=== PATIENT | male | born 1975 | race Caucasian/White ===

== ENCOUNTER 2017-05-12 15:47 | Emergency (ER) | payer SELFPAY ==
[2017-05-12 15:57] VITALS: BMI 25.0
--- NOTE | 2017-05-12 16:14 | DR.GENAD ---
HPI - PCP Primary Care Physician: JOHN - Complaint/Symptoms Chief Complaint Doctors Comments: Patient admits to left lower extremity erythema for three weeks. The erthema is not getting worse he is concerned that it has been there for this duration. He denies trauma. Chief Complaint:: PT C/O SWELLIN, PAIN AND REDNESS TO LT LOWER EXT. PT STATES THIS HAS BEEN THERE FOR 2 WEEKS IT IS NOT GETTING BETTER. PT STATES HE THOUGHT AT FIRST HE HIT IT ON SOMETHING, BUT OVER THE COURSE OF TIME THE SWELLING AND REDNESS IS GETTING WORSE AND HE IS HAVING TROUBLE WALKING - Source History Provided: Patient - Mode of Arrival Mode of Arrival: Ambulatory - Timing Onset of Chief Complaint: 05/11/17 PMH - PMH Past Medical History: Yes Past Medical History: Hypertension Past Surgical History: No - Family History History of Family Medical Conditions: No - Social History Does any household member use tobacco: No Alcohol Use: Heavy, DAILY Do you use any recreational Drugs:: No Lives With: Family Lives Where: Home - infectious screening In the last 2 months have you had wt loss of >10#?: NO Have you had fever, night sweats or hemotysis?: No Have you traveled outside the country in the last 6 months?: No Isolation: Standard ROS - Review of Systems Eyes: No Symptoms Reported ENTM: No Symptoms Reported Respiratoy: No Symptoms Reported Cardiovascular: No Symptoms Reported Gastrointestinal/Abdominal: No Symptoms Reported Genitourinary: No Symptoms Reported Neurological: No Symptoms Reported Musculoskeletal: No Symptoms Reported Integumentary: No Symptoms Reported Hematologic/Lymphatic: No Symptoms Reported Endocrine: No Symptoms Reported Psychiatric: No Symptoms Reported All Other Systems: Reviewed and Negative PE - Vital Signs Vitals: Temperature 98.5 F Pulse Rate [Right] 77 Pulse Rate 74 Respiratory Rate 16 Blood Pressure [Left Arm] 158/89 Blood Pressure 193/123 O2 Sat by Pulse Oximetry 99 - General Limitations: No Limitations General Appearance: Alert, In No Apparent Distress - Head Head Exam: Normal Inspection, Atraumatic - Eyes Eye exam: Normal Appearance, PERRL, EOMI - ENT ENT Exam: Normal Exam External Ear Exam: Normal External Inspection TM/Canal Exam: Bilateral Normal Nose Exam: Normal Nose Exam Mouth Exam: Normal Inspection Throat Exam: Normal Inspection - Neck Neck Exam: Normal Inspection - Chest Chest Inspection: Normal Inspection, Symmetric Chest Wall Rise, Tenderness - Respiratory Respiratory Exam: Normal Lung Sounds Bilat. negative: Accessory Muscle Use Respiratory Exam: Bilateral Clear to Auscultation - Cardiovascular Cardiovascular Exam: Regular Rate, Normal Rhythm - Abdominal Exam Abdominal Exam: Normal Inspection, Normal Bowel Sounds, Soft Abdominal Tenderness: negative: RUQ, RLQ, LUQ, LLQ, Epigastrium, Suprapubic, Diffuse, Mild, Moderate, Severe, Other - Extremities Extremities Exam: Other (left lower extremity with a slight erythematous guille above the ankle). negative: Tenderness, Edema, Joint Swelling - Back Back Exam: Normal Inspection, Full ROM - Neurologic Neurological Exam: Alert, Oriented X3, CN II-XII Intact - Psychiatric Psychiatric Exam: Normal Affect - Skin Skin Exam: Warm, Dry, Intact Course - Reevaluation 1st: Unchanged ROR - Labs Reviewed Laboratory Results Reviewed?: Yes (D Dimer 442) Result Diagrams: 05/12/17 16:25 05/12/17 16:25 Laboratory: WBC 12.5 X10^3/uL (3.6-10.0) H 05/12/17 16:25 RBC 4.88 X10^6/uL (4.7-6.0) 05/12/17 16:25 Hgb 16.2 g/dL (13.5-18.0) 05/12/17 16:25 Hct 46.1 % (42.0-54.0) 05/12/17 16:25 MCV 94.5 fL (80.0-100.0) 05/12/17 16:25 MCH 33.2 pg (27.0-34.0) 05/12/17 16:25 MCHC 35.1 g/dL (33.0-35.0) H 05/12/17 16:25 RDW 16.5 % (11.6-16.5) 05/12/17 16:25 Plt Count 261 X10^3/uL (150.0-450.0) 05/12/17 16:25 MPV 7.1 fL (7.4-11.0) L 05/12/17 16:25 Neut % 72.2 % (42.0-75.0) 05/12/17 16:25 Lymph % 19.2 % (21.0-51.0) L 05/12/17 16:25 [place] % 7.7 % (0.0-13.0) 05/12/17 16:25 Eos % 0.2 % (0.9-2.9) L 05/12/17 16:25 Baso % 0.7 % (0.2-1.0) 05/12/17 16:25 Neut # 9.0 x10^3/uL (2.2-4.8) H 05/12/17 16:25 Lymph # 2.4 X10^3/uL (1.3-2.9) 05/12/17 16:25 [place] # 1.0 x10^3/uL (0.3-0.8) H 05/12/17 16:25 Eos # 0.0 x10^3/uL (0.0-0.2) 05/12/17 16:25 Baso # 0.1 X10^3/uL (0.0-0.1) 05/12/17 16:25 Absolute Nucleated RBC 0.0 /100WBC 05/12/17 16:25 D-Dimer 442 ng/mL (0-400) H* 05/12/17 16:25 Sodium 138 mmol/L (136-145) 05/12/17 16:25 Corrected Sodium 138 mmol/L (136-145) 05/12/17 16:25 Potassium 3.7 mmol/L (3.5-5.1) 05/12/17 16:25 Chloride 99 mmol/L (98-107) 05/12/17 16:25 Carbon Dioxide 31.5 mmol/L (21-32) 05/12/17 16:25 BUN 5 mg/dL (7-18) L 05/12/17 16:25 Creatinine 0.93 mg/dL (0.70-1.30) 05/12/17 16:25 Est GFR (MDRD) Af Amer > 60 (>60) 05/12/17 16:25 Est GFR (MDRD) Non-Af > 60 (>60) 05/12/17 16:25 Glucose 114 mg/dL (65-99) H 05/12/17 16:25 Calcium 9.5 mg/dL (8.5-10.1) 05/12/17 16:25 C-Reactive Protein 3.70 mg/L (0-3.0) H 05/12/17 16:25 - XRAY XRAY Interpreted by: Radiologist (Venous US: negative for DVT) - Diagnosis Discharge Problem: Hypertension Qualifiers: Hypertension type: unspecified secondary hypertension Qualified Code(s): I15.9 - Secondary hypertension, unspecified Cellulitis Qualifiers: Site of cellulitis: extremity Site of cellulitis of extremity: lower extremity Laterality: left Qualified Code(s): L03.116 - Cellulitis of left lower limb - Discharge Plan Disposition: HOME, SELF-CARE Condition: Stable Prescriptions: Sulfamethoxazole-Trimethoprim [BACTRIM DS TAB 800/160 MG *] 1 tab PO BID #20 tab - Follow ups/Referrals Follow ups/Referrals: NFD,None [Primary Care Provider] - 3 days - Instructions Instructions: Cellulitis, Adult, [id number]
[2017-05-12 16:36] LABS: BASOPHILS # (AUTO) 0.1 X10^3/uL (0.0-0.1); BASOPHILS % (AUTO) 0.7 % (0.2-1.0); EOSINOPHILS % (AUTO) 0.2 % (0.9-2.9); HEMATOCRIT 46.1 % (42.0-54.0); HEMOGLOBIN 16.2 g/dL (13.5-18.0); LYMPHOCYTES # (AUTO) 2.4 X10^3/uL (1.3-2.9); LYMPHOCYTES % (AUTO) 19.2 % (21.0-51.0); MEAN CORPUSCULAR HEMOGLOBIN 33.2 pg (27.0-34.0); MEAN CORPUSCULAR HGB CONC 35.1 g/dL (33.0-35.0); MEAN CORPUSCULAR VOLUME 94.5 fL (80.0-100.0); MEAN PLATELET VOLUME 7.1 fL (7.4-11.0); MONOCYTES % (AUTO) 7.7 % (0.0-13.0); NEUTROPHILS % (AUTO) 72.2 % (42.0-75.0); PLATELET COUNT 261 X10^3/uL (150.0-450.0); RED BLOOD COUNT 4.88 X10^6/uL (4.7-6.0); RED CELL DISTRIBUTION WIDTH 16.5 % (11.6-16.5); WHITE BLOOD COUNT 12.5 X10^3/uL (3.6-10.0)
[2017-05-12 16:44] LABS: BLOOD UREA NITROGEN 5 mg/dL (7-18); CALCIUM 9.5 mg/dL (8.5-10.1); CARBON DIOXIDE 31.5 mmol/L (21-32); CHLORIDE 99 mmol/L (98-107); COR NA(FOR HYPERGLY) 138 mmol/L (136-145); CREATININE 0.93 mg/dL (0.70-1.30); SODIUM 138 mmol/L (136-145); eGFR BLACK RACES > 60 (>60); eGFR NON BLACK RACES > 60 (>60)
[2017-05-12] MEDS ORDERED: CATAPRES TAB 0.1 MG PO ONE ×2 (17:25→18:19)
[2017-05-12] MEDS ORDERED: CATAPRES TAB 0.1 MG ONE ×2 (17:32→18:19)
--- NOTE | 2017-05-12 18:18 | VAS ---
HISTORY: Left lower extremity pain Study: Venous Doppler ultrasound left lower extremity Comparison: None Technique: Multiple sonographic images of the deep venous system of the left lower extremity were obt ained. Findings: He visualized portions of the left common femoral, superficial femoral, and popliteal vein demonstrat e proper flow, compression, and augmentation without evidence for deep venous thrombosis. IMPRESSION: Negative for DVT. Reported By:
[2017-05-12] MEDS ORDERED: ROCEPHIN VIAL 500 MG IM ONE (18:34)
[2017-05-12] MEDS ORDERED: ROCEPHIN VIAL 500 MG ONE (18:49)
[2017-05-12] MEDS ORDERED: CATAPRES TAB 0.2 MG ONE (19:04)
[2017-05-12] MEDS ORDERED: CATAPRES TAB 0.2 MG PO ONE (19:04)
[2017-05-12 19:35] VITALS: BP 158/89
== END 2017-05-12 19:30 | disposition home or self-care (01) ==
LOC: ER 16:01
DX: L03.116 Cellulitis of left lower limb (principal); I15.9 Secondary hypertension, unspecified
CPT/HCPCS: 36415; 80048; 85025; 85378; 86140; 93971; 96372; 99282; 99283; J0696

== ENCOUNTER 2019-09-15 09:01 | Inpatient (IN) ==
[2019-09-15 09:07] VITALS: BMI 22.6
[2019-09-15] MEDS ORDERED: NS 1000 ML 1,000 ML IV ONE ×2 (09:13→10:35)
[2019-09-15] MEDS ORDERED: NS 1000 ML 1,000 ML ONE ×2 (09:15→10:21)
[2019-09-15 09:30] LABS: BASOPHILS # (AUTO) 0.1 X10^3/uL (0.0-0.1); BASOPHILS % (AUTO) 0.6 % (0.2-1.0); EOSINOPHILS % (AUTO) 0.2 % (0.9-2.9); HEMATOCRIT 46.8 % (42.0-54.0); HEMOGLOBIN 16.2 g/dL (13.5-18.0); LYMPHOCYTES # (AUTO) 3.3 X10^3/uL (1.3-2.9); LYMPHOCYTES % (AUTO) 19.6 % (21.0-51.0); MEAN CORPUSCULAR HEMOGLOBIN 34.2 pg (27.0-34.0); MEAN CORPUSCULAR HGB CONC 34.5 g/dL (33.0-35.0); MEAN CORPUSCULAR VOLUME 99.1 fL (80.0-100.0); MEAN PLATELET VOLUME 8.1 fL (7.4-11.0); MONOCYTES # (AUTO) 1.3 x10^3/uL (0.3-0.8); MONOCYTES % (AUTO) 7.5 % (0.0-13.0); NEUTROPHILS # (AUTO) 12.3 x10^3/uL (2.2-4.8); NEUTROPHILS % (AUTO) 72.1 % (42.0-75.0); PLATELET COUNT 308 X10^3/uL (150.0-450.0); RED BLOOD COUNT 4.73 X10^6/uL (4.7-6.0); RED CELL DISTRIBUTION WIDTH 17.3 % (11.6-16.5)
--- NOTE | 2019-09-15 09:32 | DR.EXTPAIN ---
HPI Time seen Time Seen by Provider: 09/15/19 09:18 PCP Primary Care Physician: LILIAM Complaint/Symptoms Chief Complaint Doctor Comments: SOB, DIFFICULTY WALKING DUE TO PAIN IN BOTH LEGS. RIGHT KNEE IS SWOLLEN AND HAVE PURPLE AND RED COLORATION AND IS WARM TO TOUCH. NO FEVER OR DRAINAGE. KNEE GIVE WAY TO Chief Complaint:: EMS WAS TONED OUT TO PT THAT WAS HAVING TROUBLE WALKING AND SHORT OF BREAHTE. PT C/O PAIN TO RIGHT KNEE WITH REDNESS/PURPLE COLOR NOTICED. RT KNEE IS WARM TO TOUCH. PT STATES "MY LEG JUST GIVES WAY WITH ME." Nurses notes reviewed Nurses Notes Review: Yes Source History Provided: Patient and EMS Mode of arrival Mode of Arrival: EMS Timing Onset of Chief Complaint: 09/14/19 Context History of: None Associated signs and symptoms Associated Signs and Symptoms: Pain and Swelling PMH PMH Past Medical History: Yes Past Medical History: Hypertension Past Medical History Comment: GOUT Past Surgical History: No Family History History of Family Medical Conditions: Yes Family Medical History: Hypertension Social History Alcohol Use: Occasionally Do you use any recreational Drugs:: No Lives With: Family Lives Where: Home Travel Risk Coronavirus risk:travel/contact w/high risk person: No Has patient experienced Coronavirus symptoms: No Infectious screening In the last 2 months have you had wt loss of >10#?: NO Have you had fever, night sweats or hemotysis?: No Have you traveled outside the country in the last 6 months?: No Isolation: Standard ROS Review of Systems Constitutional: See HPI, Weakness and Fatigue; negative Fever Eyes: No Symptoms Reported and See HPI; negative Blurred Vision and Diplopia ENTM: No Symptoms Reported and See HPI; negative Ear Pain, Nose Discharge, Nose Congestion and Throat Pain Respiratoy: See HPI and Short of Breath; negative Moist Cough and Wheezing Cardiovascular: See HPI, Edema and Palpitations; negative Chest Pain Gastrointestinal/Abdominal: No Symptoms Reported and See HPI; negative Abdominal Pain, Diarrhea, Nausea and Vomiting Genitourinary: No Symptoms Reported and See HPI; negative Dysuria, Frequency and Hematuria Neurological: See HPI and Weakness; negative Headache and Dizziness Musculoskeletal: See HPI, Muscle Pain, Leg and Knee Integumentary: See HPI and Change in Color; negative Rash and Juandice Hematologic/Lymphatic: No Symptoms Reported and See HPI; negative Easy Bruising and Swollen Glands Endocrine: No Symptoms Reported and See HPI; negative Increased Thirst, Increased Urine and Decreased Appetite Psychiatric: No Symptoms Reported and See HPI All Other Systems: Reviewed and Negative PE Vital Signs Vitals: Temperature 98.1 F Pulse Rate 130 Respiratory Rate 30 Blood Pressure [Left Arm] 141/105 Blood Pressure 133/86 O2 Sat by Pulse Oximetry 96 General Limitations: No Limitations General Appearance: Alert and In No Apparent Distress Head Head Exam: Normal Inspection and Atraumatic Eyes Eye exam: Normal Appearance and PERRL; negative Scleral Icterus and Conjunctival Injection ENT ENT Exam: Normal Exam; negative Normal Oropharynx, Normal External Ear Exam and TM's Normal Bilaterally Neck Neck Exam: Normal Inspection and Trachea Midline; negative Tenderness and Lymphadenopathy Chest Chest Inspection: Normal Inspection and Symmetric Chest Wall Rise; negative Tenderness Respiratory Respiratory Exam: Normal Lung Sounds Bilat; negative Accessory Muscle Use, Chest Wall Tenderness and Respiratory Distress Respiratory Exam: Bilateral: Clear to Auscultation Cardiovascular Cardiovascular Exam: Normal Rhythm; negative Tachycardia Abdominal Exam Abdominal Exam: Normal Inspection, Normal Bowel Sounds and Soft; negative Tenderness Extremities Extremities Exam: Normal Inspection and Tenderness Back Back Exam: Normal Inspection; negative (R) CVA Tenderness and (L) CVA Tenderness Neurological Neurological Exam: Alert, Oriented X3 and CN II-XII Intact; negative Motor Sensory Deficit Psychiatric Psychiatric Exam: Normal Affect and Normal Mood Skin Skin Exam: Warm, Dry, Intact and Normal Color MDM Differential Diagnosis Differential Diagnosis: Other (PNEUMONIA, NE, CHF, COPD, ELETROLYTE DISTURBANCE, ARRHYTHMIA.) COURSE Treatment Treatment: SEE ORDERS. Consultation Consultation Comments: DR. NIELSEN WILL ADMIT PATIENT. Education/Counseling Education/Counseling: Patient Educated On: Diagnosis and Needs for Follow Up ROR Labs Reviewed Laboratory Results Reviewed?: Yes Result Diagrams: 09/18/19 04:25 09/18/19 04:25 Laboratory: WBC 17.0 X10^3/uL (3.6-10.0) H 09/15/19 09:22 RBC 4.73 X10^6/uL (4.7-6.0) 09/15/19 09:22 Hgb 16.2 g/dL (13.5-18.0) 09/15/19 09:22 Hct 46.8 % (42.0-54.0) 09/15/19 09:22 MCV 99.1 fL (80.0-100.0) 09/15/19 09:22 MCH 34.2 pg (27.0-34.0) H 09/15/19 09: MCHC 34.5 g/dL (33.0-35.0) 09/15/19 09: RDW 17.3 % (11.6-16.5) H 09/15/19 09: Plt Count 308 X10^3/uL (150.0-450.0) 09/15/19 09: MPV 8.1 fL (7.4-11.0) 09/15/19 09: Neut % (Auto) 72.1 % (42.0-75.0) 09/15/19 09: Lymph % (Auto) 19.6 % (21.0-51.0) L 09/15/19 09: [place] % (Auto) 7.5 % (0.0-13.0) 09/15/19 09: Eos % (Auto) 0.2 % (0.9-2.9) L 09/15/19 09: Baso % (Auto) 0.6 % (0.2-1.0) 09/15/19 09: Neut # (Auto) 12.3 x10^3/uL (2.2-4.8) H 09/15/19 09: Lymph # (Auto) 3.3 X10^3/uL (1.3-2.9) H 09/15/19 09:22 [place] # (Auto) 1.3 x10^3/uL (0.3-0.8) H 09/15/19 09: Eos # (Auto) 0.0 x10^3/uL (0.0-0.2) 09/15/19 09: Baso # (Auto) 0.1 X10^3/uL (0.0-0.1) 09/15/19: Absolute Nucleated RBC 0.2 /100WBC 09/15/19: PT 13.6 SECONDS (11.8-14.3) 09/15/19 09: INR Target Range - 09/15/19: INR 1.08 (0.8-1.3) 09/15/19: APTT 30.9 SECONDS (22.9-36.5) 03/22/20 09:22 PTT Comment - 09/15/19 09:22 D-Dimer 2400 ng/mL (0-400) H* 09/15/19 09:22 Sample Site Lr 09/15/19 12:21 ABG pH 7.590 (7.35-7.45) H* 09/15/19 12:21 ABG pCO2 28.0 mmHg (35.0-45.0) L 09/15/19 12:21 ABG pO2 77.0 mmHg (80.0-100.0) L 09/15/19 12:21 ABG HCO3 26.9 mmol/L (22-26) H 09/15/19 12:21 ABG O2 Saturation 97.0 % (90-100) 09/15/19 12:21 ABG Base Excess 5.7 mmol/L (-2.0-2.0) H 09/15/19 12:21 Jude Test Pos 09/15/19 12:21 A-a Gradient 88.0 mmHg 09/15/19 12:21 FiO2 28.0 09/15/19 12:21 Blood Gas Comments Jose well cb 09/15/19 12:21 Sodium 130 mmol/L (136-145) L 09/15/19 09:22 Corrected Sodium 137 mmol/L (136-145) 09/15/19 09:22 Potassium 3.3 mmol/L (3.5-5.1) L 09/15/19 09:22 Chloride 91 mmol/L (98-107) L 09/15/19 09:22 Carbon Dioxide 30.1 mmol/L (21-32) 09/15/19 09:22 BUN 13 mg/dL (7-18) 09/15/19 09:22 Creatinine 1.04 mg/dL (0.70-1.30) 09/15/19 09:22 Est GFR (MDRD) Af Amer > 60 (>60) 09/15/19 09:22 Est GFR (MDRD) Non-Af > 60 (>60) 09/15/19 09:22 Glucose 407 mg/dL (65-99) H 09/15/19 09:22 Hemoglobin A1c 9.1 % 09/15/19 09:22 Calcium 8.8 mg/dL (8.5-10.1) 09/15/19 09:22 Corrected Calcium 9.8 mg/dL (8.5-10.1) 09/15/19 09:22 Magnesium 1.4 mg/dL (1.7-2.9) L 09/15/19 09:22 Total Bilirubin 1.50 mg/dL (0.2-1.0) H 09/15/19 09:22 AST 36 Units/L (15-37) 09/15/19 09:22 ALT 24 Units/L (12-78) 09/15/19 09:22 Alkaline Phosphatase 205 Units/L (46-116) H 09/15/19 09:22 B-Natriuretic Peptide 498 pg/mL (0-79) H 09/15/19 09:22 Total Protein 6.8 g/dL (6.4-8.2) 09/15/19 09:22 Albumin 2.8 g/dL (3.4-5.0) L 09/15/19 09:22 Globulin 4.0 g/dL (2.5-4.5) 09/15/19 09:22 Albumin/Globulin Ratio 0.7 Ratio (1.1-2.1) L 09/15/19 09:22 TSH 3rd Generation 1.468 uIU/mL (0.358-3.74) 09/15/19 09:22 Acetone, Semi-Quant Negative (NEGATIVE) 09/15/19 09:22 XRAY XRAY Interpreted by: Radiologist (REPORT NOTED AND DISCUSSED WITH PATIENT.) and Self Opioid Opioid Risk Tool Age (Jonas box if 16-45): Yes History of Preadolescent Sexual Abuse: No Total: 1 Total Score Risk Category: Low Risk Copyright: [facility] predicting aberrant behaviors Diagnosis Discharge Problem: Bilateral pulmonary embolism, Diabetes mellitus, new onset, Tachycardia, Hypokalemia, Elevated brain natriuretic peptide (BNP) level, Bronchitis Deep vein thrombosis (DVT) of right lower extremity Qualifiers: Affected thrombotic vein of extremity: femoral Chronicity: acute Qualified Code(s): I82.411 - Acute embolism and thrombosis of right femoral vein Instructions Instructions: Diabetes Mellitus and Foot Care Tips for Eating Away From Home If You Have Diabetes Pulmonary Embolism Form - Daily Diabetes Record Type 2 Diabetes Mellitus, Self Care, Adult, [id number] Diabetes Mellitus and Standards of Medical Care Hypertension, [id number] Deep Vein Thrombosis Forms: Patient Portal
[2019-09-15 09:43] LABS: ALANINE AMINOTRANSFERASE 24 Units/L (12-78); ALBUMIN 2.8 g/dL (3.4-5.0); ALKALINE PHOSPHATASE 205 Units/L (46-116); ASPARTATE AMINO TRANSFERASE 36 Units/L (15-37); BLOOD UREA NITROGEN 13 mg/dL (7-18); CALCIUM 8.8 mg/dL (8.5-10.1); CARBON DIOXIDE 30.1 mmol/L (21-32); CHLORIDE 91 mmol/L (98-107); COR CA(FOR HYPOALB) 9.8 mg/dL (8.5-10.1); COR NA(FOR HYPERGLY) 137 mmol/L (136-145); CREATININE 1.04 mg/dL (0.70-1.30); SODIUM 130 mmol/L (136-145); TOTAL PROTEIN 6.8 g/dL (6.4-8.2); eGFR NON BLACK RACES > 60 (>60)
[2019-09-15 10:04] LABS: TSH (3RD GENERATION) 1.468 uIU/mL (0.358-3.74)
--- NOTE | 2019-09-15 11:23 | CT ---
HISTORYShortness of breath. Elevated D-dimer.STUDYCTA CHESTCOMPARISONNone.TECHNIQUEMultiple axial images of the chest were obtained from the thoracic inlet to the upper abdomen after the administration of IV contrast. 3D reconstructions utilizing axial MIPS imaging was performed and reviewed. Dose reduction techniques including Automated Exposure Control (AEC) and adjustment of mA and kV were utilized.FINDINGSThere are filling defects of the distal aspect of the right and left pulmonary arteries which extend into the lobar, segmental and subsegmental pulmonary artery levels bilaterally compatible with acute pulmonary thromboembolic disease. There is no saddle embolus. The main pulmonary artery is normal in size measuring 27 mm in diameter. There is relative flattening of the intraventricular septum. The heart is normal in size without pericardial effusion. The thoracic aorta is normal in contour. There is no mediastinal or hilar lymphadenopathy based on size criteria. The included portions of the upper abdomen are grossly unremarkable. Evaluation of the lung parenchyma demonstrates no focal consolidation, pleural effusion or pneumothorax. The bony structures are grossly intact.IMPRESSION1. Bilateral acute pulmonary thromboembolic disease without saddle embolus as above. The main pulmonary artery is normal in size, however, there is relative flattening of the intraventricular septum of the heart which is a nonspecific finding, but can be seen in the setting of right heart strain.2. The lungs are clear.Electronically signed by: PRADEEP NGUYEN (Sep 15, 2019 11:21:50)
[2019-09-15 12:22] LABS: ABG BASE EXCESS 5.7 mmol/L (-2.0-2.0); ABG HCO3 26.9 mmol/L (22-26)
[2019-09-15 12:23] LABS: ABG ALLEN TEST POS
[2019-09-15] MEDS ORDERED: HEPARIN SODIUM INJ 5000 UNITS ONE (12:46)
[2019-09-15] MEDS ORDERED: HEPARIN SODIUM IN D5W 25,000 UNITS/500 ML BAG IV ONE (12:47)
[2019-09-15] MEDS: HEPARIN SODIUM IN D5W 25,000 UNITS/500 ML BAG IV PRN (13:20)
[2019-09-15] MEDS ORDERED: HEPARIN SODIUM INJ 5000 UNITS IVP ONE ×2 (13:36→20:04)
--- NOTE | 2019-09-15 13:47 | VAS ---
HISTORYACUTE bilateral pulmonary emboli, NO LEG COMPLAINTSSTUDYLOWER EXT VENOUS, BILATERALCOMPARISONCT of the chest performed earlier the same day.TECHNIQUEMultiple felipe scale and color flow Doppler images of the deep venous system were obtained of the right and left lower extremity.FINDINGSThe deep venous system of the right and left lower extremities were evaluated from the level of the common femoral vein through the popliteal vein. There is echogenic material throughout the deep venous system of the right lower extremity from the popliteal vein to the common femoral vein without vein compressibility or evidence of internal vascular flow on Doppler interrogation. Normal color flow and augmentation can be observed throughout the deep venous system of the left lower extremity. In addition, normal compression is seen throughout the deep venous system on the left.IMPRESSION1. Occluding DVT on the right from the level of the popliteal vein to the common femoral vein.2. No evidence of left lower extremity DVT.Electronically signed by: PRADEEP NGUYEN (Sep 15, 2019 13:46:47)
[2019-09-15] MEDS ORDERED: HumuLIN R SC PRN (14:11)
[2019-09-15] MEDS ORDERED: POTASSIUM CHL 60 MEQ/NS 0.45% 500 ML IV PRN (16:20)
[2019-09-15] MEDS ORDERED: MICRO K EXTEN CAP 10 MEQ PO PRN (16:20)
[2019-09-15] MEDS ORDERED: KLOR-CON PO PRN (16:20)
[2019-09-15] MEDS ORDERED: POTASSIUM CHLORIDE LIQ 20 MEQ UDC PO PRN (16:20)
[2019-09-15] MEDS ORDERED: POTASSIUM CHL 40 MEQ/NS 0.45% 500 ML IV PRN (16:20)
[2019-09-15] MEDS ORDERED: K-RIDER 10 MEQ/NS 100 ML 10 MEQ/100 ML BAG IV PRN (16:20)
[2019-09-15 16:56] LABS: CKMB % 7.1 % (<4); CREATINE KINASE 14 Units/L (39-308); CREATINE KINASE MB < 1.0 ng/mL (0-4.0); TROPONIN I 0.08 ng/mL (0-1.5)
[2019-09-15] MEDS ORDERED: K-DUR TAB 20 MEQ PO ONE (17:00)
[2019-09-15] MEDS ORDERED: NS 100 ML IV + SPIKE MINIBAG* 100 ML IV ONE (17:00)
[2019-09-15] MEDS ORDERED: ROCEPHIN VIAL 1 GRAM ONE (17:00)
[2019-09-15] MEDS ORDERED: MAGNESIUM SULFATE 1 GRAM/100 mL PREMIX 4 G/400 ML BAG IV ONE (17:01)
[2019-09-15] MEDS ORDERED: HumuLIN R ONE (17:02)
[2019-09-15] MEDS: MAGNESIUM SULFATE 1 GRAM/100 mL PREMIX 1 GM/100 ML BAG IV PRN ×3 (17:26→21:43)
[2019-09-15] MEDS: ROCEPHIN VIAL 1 GRAM 1 G in NS 100 ML IV + SPIKE MINIBAG* 100 ML IV SCH (17:27)
[2019-09-15 22:50] LABS: CKMB % 6.3 % (<4); CREATINE KINASE 16 Units/L (39-308); CREATINE KINASE MB < 1.0 ng/mL (0-4.0); TROPONIN I 0.07 ng/mL (0-1.5)
[2019-09-16 04:01] LABS: BILIRUBIN,URINE 1+ (NEGATIVE); BLOOD/HEMOGLOBIN,URINE 1+ (NEGATIVE); GLUCOSE, URINE 2+ (NEGATIVE); KETONES,URINE 2+ (NEGATIVE); LEUKOCYTE ESTERASE ,URINE 1+ (NEGATIVE); NITRITES,URINE NEGATIVE (NEGATIVE); PROTEIN,URINE 2+ (NEGATIVE); UROBILINOGEN,URINE 3+ (NORMAL)
[2019-09-16 04:08] LABS: APPEARANCE,URINE CLEAR (CLEAR); COLOR,URINE AMBER (YELLOW)
[2019-09-16 04:09] LABS: BACTERIA,URINE TRACE /HPF (NEGATIVE); HYALINE CASTS, URINE MODERATE /LPF (NEGATIVE); MUCUS,URINE FEW /HPF (NEGATIVE); RBC,URINE 0-2 /HPF (0-3); SQUAMOUS EPITHELIAL CELL,UR FEW /HPF (NEGATIVE)
[2019-09-16 04:21] LABS: BASOPHILS # (AUTO) 0.1 X10^3/uL (0.0-0.1); BASOPHILS % (AUTO) 0.6 % (0.2-1.0); EOSINOPHILS # (AUTO) 0.1 x10^3/uL (0.0-0.2); EOSINOPHILS % (AUTO) 0.4 % (0.9-2.9); HEMATOCRIT 38.1 % (42.0-54.0); LYMPHOCYTES # (AUTO) 3.6 X10^3/uL (1.3-2.9); LYMPHOCYTES % (AUTO) 27.8 % (21.0-51.0); MEAN CORPUSCULAR HEMOGLOBIN 33.9 pg (27.0-34.0); MEAN CORPUSCULAR HGB CONC 34.5 g/dL (33.0-35.0); MEAN CORPUSCULAR VOLUME 98.3 fL (80.0-100.0); MEAN PLATELET VOLUME 8.3 fL (7.4-11.0); MONOCYTES % (AUTO) 7.8 % (0.0-13.0); NEUTROPHILS # (AUTO) 8.2 x10^3/uL (2.2-4.8); NEUTROPHILS % (AUTO) 63.4 % (42.0-75.0); PLATELET COUNT 219 X10^3/uL (150.0-450.0); RED BLOOD COUNT 3.88 X10^6/uL (4.7-6.0); RED CELL DISTRIBUTION WIDTH 17.8 % (11.6-16.5); WHITE BLOOD COUNT 12.9 X10^3/uL (3.6-10.0)
[2019-09-16 04:26] LABS: HEMOGLOBIN 13.1 g/dL (13.5-18.0)
[2019-09-16 04:29] LABS: ALANINE AMINOTRANSFERASE 27 Units/L (12-78); ALBUMIN 2.3 g/dL (3.4-5.0); ALKALINE PHOSPHATASE 169 Units/L (46-116); ASPARTATE AMINO TRANSFERASE 47 Units/L (15-37); BLOOD UREA NITROGEN 10 mg/dL (7-18); CALCIUM 7.4 mg/dL (8.5-10.1); CARBON DIOXIDE 24.4 mmol/L (21-32); CHLORIDE 96 mmol/L (98-107); COR CA(FOR HYPOALB) 8.8 mg/dL (8.5-10.1); COR NA(FOR HYPERGLY) 133 mmol/L (136-145); CREATININE 0.68 mg/dL (0.70-1.30); SODIUM 131 mmol/L (136-145); TOTAL PROTEIN 5.7 g/dL (6.4-8.2); eGFR NON BLACK RACES > 60 (>60)
[2019-09-16] MEDS ORDERED: HEPARIN SODIUM INJ 5000 UNITS IVP ONE ×2 (04:30→17:48)
[2019-09-16] MEDS ORDERED: HEPARIN SODIUM INJ 5000 UNITS ONE (04:34)
[2019-09-16] MEDS: NS 1000 ML 1,000 ML IV SCH ×3 (05:48→22:28)
[2019-09-16] MEDS: K-DUR TAB 20 MEQ PO PRN (05:48)
[2019-09-16] MEDS: ROCEPHIN VIAL 1 GRAM 1 G in NS 100 ML IV + SPIKE MINIBAG* 100 ML IV SCH (09:05)
[2019-09-16 10:23] LABS: ERYTHROCYTE SEDIMENTATION RATE 20 MM/HOUR (0-15)
[2019-09-16 11:33] LABS: ABG ALLEN TEST POS; ABG BASE EXCESS -0.4 mmol/L (-2.0-2.0); ABG HCO3 21.5 mmol/L (22-26)
[2019-09-16 11:37] LABS: CKMB % 5.3 % (<4); CREATINE KINASE 19 Units/L (39-308); CREATINE KINASE MB < 1.0 ng/mL (0-4.0); TROPONIN I 0.05 ng/mL (0-1.5)
--- NOTE | 2019-09-16 11:53 | DR.H&P ---
H&P - History & Physical for Day of: H&P Date: 09/15/19 - Chief Complaint Chief Complaint: SOB, RIGHT LOWER LEG PAIN, SWELLING - History of Present Illness History of Present Illness: PT IS 43 WM ER ADMISSION AFTER EMS WAS TONED OUT TO PT THAT WAS HAVING TROUBLE WALKING AND SHORT OF BREATH. PT C/O PAIN TO RIGHT KNEE WITH REDNESS/PURPLE COLOR NOTICED. RT KNEE IS WARM TO TOUCH. PT STATES "MY LEG JUST GIVES WAY WITH ME." PT DENIES ANY FEVER OR COUGH. PT DENIES CHEST PAIN OR DIZZINESS, NO GI COMPLAINTS. PT HAS PMH OF HTN STATES HE HAS BEEN TAKING ATENOLOL FROM HIS AUNT, PT HAD NO PCP. PT'S MOTHER REPORTS PATIENT HAS BEEN COMPLAINING ABOUT LEG SWELLING 4 MONTHS. PT HAD US +DVT RLE AND BILATERAL PE ON CTA CHEST. PT HAD ELEVATED BLOOD GLUCOSE WITH A1C 9.1 WITH NO HISTORY OF DIABETES. - Past Medical History Past Medical History: Hypertension - Past Surgical History Surgical History: Unknown - Family History Family Medical History: Diabetes Mellitus, Cancer, [place], Coronary Artery Disease, Hypertension - Social History Does patient currently use any type of tobacco product: No Have you used tobacco products in the last 12 months: No Type of Tobacco Use: None Does any household member use tobacco: No Alcohol Use: Occasionally Drug Use: None - Medications Home Medications: No Known Drug Allergies Allergy (Verified 09/15/19 09:06) - Review of Systems Constitutional: denies: Fever Eyes: No Symptoms Reported ENT: No Symptoms Reported Respiratory: Shortness of Breath, SOB with Excertion Cardiovascular: No Symptoms Reported Gastrointestinal: No Symptoms Reported Genitourinary: No Symptoms Reported Musculoskeletal: Leg Pain Skin: No Symptoms Reported Neurological: No Symptoms Reported - Physical Exam Vital Signs: Temperature 97.7 F Pulse Rate 116 Respiratory Rate 22 Blood Pressure [Left Arm] 141/105 Blood Pressure 146/94 O2 Sat by Pulse Oximetry 97 Oriented: Normal Eyes: Normal Ear: Normal Nose: Normal Throat: Normal Respiratory: RLL Diminished, LLL Diminished Cardiovascular: Edema : Normal Auscultation: Bowel Sounds: Normal Palpation: Normal Skin: Normal Musculoskeletal: Right, Leg, Swelling, Tender Psychiatric: Normal Mood Description: Calm Speech Pattern: Clear, Appropriate - Assessment/Plan (1) Bilateral pulmonary embolism Status: Acute Plan: ADMIT ICU. HEPARIN DRIP, US LE DONE IN ER, CTA CHEST IN ER. SUPPLEMENTAL O2, ABG DONE ON ADMISSION. SERIAL CE AND EKG, CONTINUOUS CARDIAC MONITORING. BP CONTROL, ACETONE ON ADMISSION, SSI COVERAGE. (2) Diabetes mellitus, new onset Status: Acute (3) Right leg DVT Qualifiers: Affected thrombotic vein of extremity: femoral Chronicity: acute Qualified Code(s): I82.411 - Acute embolism and thrombosis of right femoral vein Status: Acute (4) Hypertension Qualifiers: Hypertension type: unspecified secondary hypertension Qualified Code(s): I15.9 - Secondary hypertension, unspecified; I15 - Secondary hypertension Status: Acute - Allergies Allergies/Adverse Reactions: Allergies Allergy/AdvReac Type Severity Reaction Status Date / Time No Known Drug Allergies Allergy Verified 09/15/19 09:06
[2019-09-16] MEDS: TENORMIN PO SCH (12:01)
[2019-09-16] MEDS: TENORMIN ONE ×2 (12:01→12:04)
[2019-09-16] MEDS: HEPARIN SODIUM IN D5W 25,000 UNITS/500 ML BAG IV PRN ×2 (13:12→18:09)
[2019-09-16 17:32] LABS: CKMB % 2.6 % (<4); CREATINE KINASE 39 Units/L (39-308); CREATINE KINASE MB < 1.0 ng/mL (0-4.0); TROPONIN I 0.02 ng/mL (0-1.5)
[2019-09-16] MEDS: SNACK - Diabetic Appropriate PO SCH (20:10)
[2019-09-16 23:50] LABS: CKMB % 4.4 % (<4); CREATINE KINASE 23 Units/L (39-308); CREATINE KINASE MB < 1.0 ng/mL (0-4.0); TROPONIN I 0.03 ng/mL (0-1.5)
[2019-09-17 04:58] LABS: BASOPHILS # (AUTO) 0.1 X10^3/uL (0.0-0.1); BASOPHILS % (AUTO) 0.6 % (0.2-1.0); EOSINOPHILS # (AUTO) 0.1 x10^3/uL (0.0-0.2); EOSINOPHILS % (AUTO) 0.7 % (0.9-2.9); HEMATOCRIT 34.4 % (42.0-54.0); HEMOGLOBIN 11.9 g/dL (13.5-18.0); LYMPHOCYTES # (AUTO) 3.8 X10^3/uL (1.3-2.9); LYMPHOCYTES % (AUTO) 35.2 % (21.0-51.0); MEAN CORPUSCULAR HEMOGLOBIN 34.5 pg (27.0-34.0); MEAN CORPUSCULAR HGB CONC 34.6 g/dL (33.0-35.0); MEAN CORPUSCULAR VOLUME 99.7 fL (80.0-100.0); MEAN PLATELET VOLUME 9.2 fL (7.4-11.0); MONOCYTES # (AUTO) 0.9 x10^3/uL (0.3-0.8); MONOCYTES % (AUTO) 8.2 % (0.0-13.0); NEUTROPHILS # (AUTO) 5.9 x10^3/uL (2.2-4.8); NEUTROPHILS % (AUTO) 55.3 % (42.0-75.0); PLATELET COUNT 198 X10^3/uL (150.0-450.0); RED BLOOD COUNT 3.45 X10^6/uL (4.7-6.0); RED CELL DISTRIBUTION WIDTH 17.7 % (11.6-16.5); WHITE BLOOD COUNT 10.7 X10^3/uL (3.6-10.0)
[2019-09-17 05:26] LABS: CKMB % 5.6 % (<4); CREATINE KINASE 18 Units/L (39-308); CREATINE KINASE MB < 1.0 ng/mL (0-4.0); TROPONIN I 0.02 ng/mL (0-1.5)
[2019-09-17] MEDS: NS 1000 ML 1,000 ML IV SCH ×2 (05:31→17:03)
[2019-09-17] MEDS: HEPARIN SODIUM IN D5W 25,000 UNITS/500 ML BAG IV PRN (05:31)
[2019-09-17 06:04] LABS: ALANINE AMINOTRANSFERASE 78 Units/L (12-78); ALKALINE PHOSPHATASE 177 Units/L (46-116); ASPARTATE AMINO TRANSFERASE 211 Units/L (15-37); BLOOD UREA NITROGEN 7 mg/dL (7-18); CALCIUM 7.7 mg/dL (8.5-10.1); CARBON DIOXIDE 21.7 mmol/L (21-32); CHLORIDE 100 mmol/L (98-107); COR CA(FOR HYPOALB) 9.3 mg/dL (8.5-10.1); COR NA(FOR HYPERGLY) 134 mmol/L (136-145); CREATININE 0.67 mg/dL (0.70-1.30); SODIUM 133 mmol/L (136-145); TOTAL PROTEIN 5.3 g/dL (6.4-8.2); eGFR NON BLACK RACES > 60 (>60)
[2019-09-17] MEDS: AMARYL TAB 4 MG PO SCH (06:07)
[2019-09-17] MEDS: K-DUR TAB 20 MEQ PO PRN (06:12)
[2019-09-17] MEDS: MAGNESIUM SULFATE 1 GRAM/100 mL PREMIX 1 GM/100 ML BAG IV PRN ×2 (06:26→18:17)
[2019-09-17] MEDS: ROCEPHIN VIAL 1 GRAM 1 G in NS 100 ML IV + SPIKE MINIBAG* 100 ML IV SCH (08:01)
[2019-09-17] MEDS: TENORMIN PO SCH (08:01)
[2019-09-17] MEDS ORDERED: TENORMIN PO SCH (09:00)
[2019-09-17] MEDS ORDERED: NORCO 5/325 MG TAB ONE (16:51)
[2019-09-17] MEDS: NORCO 5/325 MG TAB PO PRN ×2 (17:00→23:48)
--- NOTE | 2019-09-17 18:05 | PCM.PROG ---
Progress Note - Progress Note for Day of Date of Exam: 09/17/19 - Subjective Subjective: Mr. Waterman is a 43-year-old white male who was an ER admission, with no local doctor, complaining of right lower extremity swelling and shortness of breath. The patient denied any GI symptoms, any nausea, vomiting, diarrhea, or constipation. He denied any chest pain, cough, cold, congestion, or fever. The patients mother reports that he has been having swelling and pain in the right lower extremity for approximately four months. He does have a past medical history of high blood pressure and is noncompliant with medication based on pharmacy refill records however, the patient reports that he has been taking his aunts, which is Atenolol. The patient did have a positive deep vein thrombosis confirmed on a venous Doppler on admission to the right lower extremity with no evidence on the left of deep vein thrombosis. His CTA of the chest revealed bilateral acute pulmonary emboli without saddle emboli. The patient is currently on a heparin drip. He was also noted to be hyperglycemic with no history of diabetes mellitus. The patients A1C on admission was 9.1, glucose was 407 at that time. He was also noted to be hyponatremic and hypokalemic. The patient has been on gentle IV hydration, as well as blood sugar control with sliding scale insulin coverage. Pt blood sugar 141 this am, Na 133. Pt co right foot and lower leg pain, with gradual improving rle edema. Pt denies any chest pain or SOB at rest, co mild SOB on exertion to restroom. Plan to consult pharmacy for changing to po eliquis. - Past Medical Family Social History Past Med/Fam/Surg Hx: No changes since H&P Allergies: Allergies No Known Drug Allergies Allergy (Verified 09/15/19 09:06) - Review of Systems ROS: No change since H&P - Vital Signs and I&O's Vital Signs: Temperature 99.8 F Pulse Rate 92 Respiratory Rate 19 Blood Pressure [Left Arm] 141/105 Blood Pressure 128/89 O2 Sat by Pulse Oximetry 99 Intake and Output: Intake & Output 09/15/19 09/16/19 09/17/19 09/18/19 11:59 11:59 11:59 11:59 Intake Total 3370 / 3370 5223 / 5223 1702 / 1702 Output Total 100 / 100 Balance 3270 / 3270 5223 / 5223 1702 / 1702 - Physical Exam Oriented: Normal Eyes: Normal Ear: Normal Nose: Normal Throat: Normal Respiratory: Normal Cardiovascular: Edema : Normal Auscultation: Bowel Sounds: Normal Skin: Normal Musculoskeletal: Right, Leg, Swelling, Tender Psychiatric: Normal Mood Description: Calm Speech Pattern: Clear, Appropriate - Laboratory and Diagnostics Result Diagrams: 09/17/19 04:28 09/17/19 04:28 Labs: Laboratory WBC 10.7 X10^3/uL (3.6-10.0) H 09/17/19 04:28 RBC 3.45 X10^6/uL (4.7-6.0) L 09/17/19 04:28 Hgb 11.9 g/dL (13.5-18.0) L 09/17/19 04:28 Hct 34.4 % (42.0-54.0) L 09/17/19 04:28 MCV 99.7 fL (80.0-100.0) 09/17/19 04:28 MCH 34.5 pg (27.0-34.0) H 09/17/19 04:28 MCHC 34.6 g/dL (33.0-35.0) 09/17/19 04:28 RDW 17.7 % (11.6-16.5) H 09/17/19 04:28 Plt Count 198 X10^3/uL (150.0-450.0) 09/17/19 04:28 MPV 9.2 fL (7.4-11.0) 09/17/19 04:28 Neut % (Auto) 55.3 % (42.0-75.0) 09/17/19 04:28 Lymph % (Auto) 35.2 % (21.0-51.0) 09/17/19 04:28 [place] % (Auto) 8.2 % (0.0-13.0) 09/17/19 04:28 Eos % (Auto) 0.7 % (0.9-2.9) L 09/17/19 04:28 Baso % (Auto) 0.6 % (0.2-1.0) 09/17/19 04:28 Neut # (Auto) 5.9 x10^3/uL (2.2-4.8) H 09/17/19 04:28 Lymph # (Auto) 3.8 X10^3/uL (1.3-2.9) H 09/17/19 04:28 [place] # (Auto) 0.9 x10^3/uL (0.3-0.8) H 09/17/19 04:28 Eos # (Auto) 0.1 x10^3/uL (0.0-0.2) 09/17/19 04:28 Baso # (Auto) 0.1 X10^3/uL (0.0-0.1) 09/17/19 04:28 Absolute Nucleated RBC 0.3 /100WBC 09/17/19 04:28 ESR 20 MM/HOUR (0-15) H 09/16/19 09:26 PT 13.6 SECONDS (11.8-14.3) 09/15/19 09:22 INR Target Range - 09/15/19 09: INR 1.08 (0.8-1.3) 09/15/19 09:22 APTT 79.9 SECONDS (22.9-36.5) H 09/17/19 04:28 PTT Comment - 09/17/19 04:28 D-Dimer 2400 ng/mL (0-400) H* 09/15/19 09:22 Sample Site Left radial 09/16/19 11:25 ABG pH 7.510 (7.35-7.45) H 09/16/19 11:25 ABG pCO2 27.0 mmHg (35.0-45.0) L 09/16/19 11:25 ABG pO2 86.0 mmHg (80.0-100.0) 09/16/19 11:25 ABG HCO3 21.5 mmol/L (22-26) L 09/16/19 11:25 ABG O2 Saturation 97.0 % (90-100) 09/16/19 11:25 ABG Base Excess -0.4 mmol/L (-2.0-2.0) 09/16/19 11:25 Jude Test Pos 09/16/19 11:25 A-a Gradient 80.0 mmHg 09/16/19 11:25 FiO2 28.0 09/16/19 11:25 Blood Gas Comments Jose well aw 09/16/19 11:25 Sodium 133 mmol/L (136-145) L 09/17/19 04:28 Corrected Sodium 134 mmol/L (136-145) L 09/17/19 04:28 Potassium 3.6 mmol/L (3.5-5.1) 09/17/19 04:28 Chloride 100 mmol/L (98-107) 09/17/19 04:28 Carbon Dioxide 21.7 mmol/L (21-32) 09/17/19 04:28 BUN 7 mg/dL (7-18) 09/17/19 04:28 Creatinine 0.67 mg/dL (0.70-1.30) L 09/17/19 04:28 Est GFR (MDRD) Af Amer > 60 (>60) 09/17/19 04:28 Est GFR (MDRD) Non-Af > 60 (>60) 09/17/19 04:28 Glucose 140 mg/dL (65-99) H 09/17/19 04:28 POC Glucose (mg/dL) 146 mg/dL (65-99) H 09/17/19 05:46 Hemoglobin A1c 9.1 % 09/15/19 09:22 Calcium 7.7 mg/dL (8.5-10.1) L 09/17/19 04:28 Corrected Calcium 9.3 mg/dL (8.5-10.1) 09/17/19 04:28 Magnesium 1.8 mg/dL (1.7-2.9) 09/17/19 04:28 Total Bilirubin 0.80 mg/dL (0.2-1.0) 09/17/19 04:28 AST 211 Units/L (15-37) H 09/17/19 04:28 ALT 78 Units/L (12-78) 09/17/19 04:28 Alkaline Phosphatase 177 Units/L (46-116) H 09/17/19 04:28 Creatine Kinase 18 Units/L (39-308) L 09/17/19 04:28 CK-MB (CK-2) < 1.0 ng/mL (0-4.0) 09/17/19 04:28 CK/CKMB % Calc 5.6 % (<4) 09/17/19 04:28 Troponin I 0.02 ng/mL (0-1.5) 09/17/19 04:28 C-Reactive Protein 82.80 mg/L (0-3.0) H 09/16/19 09:26 B-Natriuretic Peptide 498 pg/mL (0-79) H 09/15/19 09:22 Total Protein 5.3 g/dL (6.4-8.2) L 09/17/19 04:28 Albumin 2.0 g/dL (3.4-5.0) L 09/17/19 04:28 Globulin 3.3 g/dL (2.5-4.5) 09/17/19 04:28 Albumin/Globulin Ratio 0.6 Ratio (1.1-2.1) L 09/17/19 04:28 TSH 3rd Generation 1.468 uIU/mL (0.358-3.74) 09/15/19 09:22 Specimen Type Random urine 09/16/19 03:14 Urine Color Candace (YELLOW) 09/16/19 03:14 Urine Appearance Clear (CLEAR) 09/16/19 03:14 Urine pH 7.0 (5.0 - 8.0) 09/16/19 03:14 Ur Specific [place] 1.010 (1.000-1.030) 09/16/19 03:14 Urine Protein 2+ (NEGATIVE) 09/16/19 03:14 Urine Glucose (UA) 2+ (NEGATIVE) 09/16/19 03:14 Urine Ketones 2+ (NEGATIVE) 09/16/19 03:14 Urine Occult Blood 1+ (NEGATIVE) 09/16/19 03:14 Urine Nitrite Negative (NEGATIVE) 09/16/19 03:14 Urine Bilirubin 1+ (NEGATIVE) 09/16/19 03:14 Urine Acetone Moderate (NEGATIVE) 09/16/19 20:50 Urine Urobilinogen 3+ (NORMAL) 09/16/19 03:14 Ur Leukocyte Esterase 1+ (NEGATIVE) 09/16/19 03:14 Urine RBC 0-2 /HPF (0-3) 09/16/19 03:14 Urine WBC 0-2 /HPF (0-5) 09/16/19 03:14 Ur Squamous Epith Cells Few /HPF (NEGATIVE) 09/16/19 03:14 Urine Bacteria Trace /HPF (NEGATIVE) 09/16/19 03:14 Hyaline Casts Moderate /LPF (NEGATIVE) 09/16/19 03:14 Urine Mucus Few /HPF (NEGATIVE) 09/16/19 03:14 Ur Culture Indicated? No/not indicated 09/16/19 03:14 Stool Description 63g,brown,liquid 09/16/19 18:15 Stl Occult Blood (IFOB) Negative (NEGATIVE) 09/16/19 18:15 Urine Opiates Screen Negative (NEG=<300) 09/16/19 10:57 Urine Methadone Screen Negative (NEG=<300) 09/16/19 10:57 Ur Barbiturates Screen Negative (NEG=<200) 09/16/19 10:57 Ur Phencyclidine Scrn Negative (NEG=<25) 09/16/19 10:57 Ur Amphetamines Screen Negative (NEG=<1000) 09/16/19 10:57 U Benzodiazepines Scrn Negative (NEG=<200) 09/16/19 10:57 Urine Cocaine Screen Negative (NEG=<300) 09/16/19 10:57 U Marijuana (THC) Screen Negative (NEG=<50) 09/16/19 10:57 Acetone, Semi-Quant Negative (NEGATIVE) 09/16/19 09:16 - Plan (1) Bilateral pulmonary embolism Status: Acute Plan: ICU. HEPARIN DRIP, US LE DONE IN ER, CTA CHEST IN ER. SUPPLEMENTAL O2, REPEAT ABG ON 09/15. SERIAL CE AND EKG, CONTINUOUS CARDIAC MONITORING. BP CONTROL, REPEAT, SSI COVERAGE, STARTED ON AMARYL PO (2) Diabetes mellitus, new onset Status: Acute (3) Right leg DVT Status: Acute Qualifiers: Affected thrombotic vein of extremity: femoral Chronicity: acute Quali fied Code(s): I82.411 - Acute embolism and thrombosis of right femoral vein (4) Hypertension Status: Acute Qualifiers: Hypertension type: unspecified secondary hypertension Qualified Code(s): I15.9 - Secondary hypertension, unspecified; I15 - Secondary hypertension
[2019-09-17] MEDS: SNACK - Diabetic Appropriate PO SCH (20:22)
[2019-09-17] MEDS: ELIQUIS PO SCH (20:23)
[2019-09-17] MEDS ORDERED: COLACE CAP 100 MG PO SCH (21:00)
[2019-09-17] MEDS ORDERED: VISTARIL PO ONE (21:28)
[2019-09-17] MEDS: VISTARIL PO PRN (21:32)
[2019-09-18 05:04] LABS: BASOPHILS % (AUTO) 0.5 % (0.2-1.0); EOSINOPHILS # (AUTO) 0.2 x10^3/uL (0.0-0.2); EOSINOPHILS % (AUTO) 1.6 % (0.9-2.9); HEMATOCRIT 36.7 % (42.0-54.0); HEMOGLOBIN 12.6 g/dL (13.5-18.0); LYMPHOCYTES # (AUTO) 3.3 X10^3/uL (1.3-2.9); LYMPHOCYTES % (AUTO) 33.8 % (21.0-51.0); MEAN CORPUSCULAR HEMOGLOBIN 34.4 pg (27.0-34.0); MEAN CORPUSCULAR HGB CONC 34.3 g/dL (33.0-35.0); MEAN PLATELET VOLUME 9.4 fL (7.4-11.0); MONOCYTES # (AUTO) 0.8 x10^3/uL (0.3-0.8); MONOCYTES % (AUTO) 8.8 % (0.0-13.0); NEUTROPHILS # (AUTO) 5.4 x10^3/uL (2.2-4.8); NEUTROPHILS % (AUTO) 55.3 % (42.0-75.0); PLATELET COUNT 222 X10^3/uL (150.0-450.0); RED BLOOD COUNT 3.66 X10^6/uL (4.7-6.0); WHITE BLOOD COUNT 9.7 X10^3/uL (3.6-10.0)
[2019-09-18 05:11] LABS: ALANINE AMINOTRANSFERASE 119 Units/L (12-78); ALBUMIN 2.3 g/dL (3.4-5.0); ALKALINE PHOSPHATASE 212 Units/L (46-116); ASPARTATE AMINO TRANSFERASE 244 Units/L (15-37); BLOOD UREA NITROGEN 7 mg/dL (7-18); CARBON DIOXIDE 23.4 mmol/L (21-32); CHLORIDE 101 mmol/L (98-107); COR CA(FOR HYPOALB) 9.4 mg/dL (8.5-10.1); CREATININE 0.66 mg/dL (0.70-1.30); MAGNESIUM 2.1 mg/dL (1.7-2.9); SODIUM 135 mmol/L (136-145); TOTAL PROTEIN 5.8 g/dL (6.4-8.2); eGFR NON BLACK RACES > 60 (>60)
--- NOTE | 2019-09-18 05:16 | RAD ---
Chest AP portableIndication: Dyspnea. Hypertension.COMPARISONCT chest from September 15, 2019FINDINGSThere is no pneumothorax or effusion. No dense consolidation seen. Heart size is prominent. Monitoring leads obscure detail. No dense consolidation seen.IMPRESSIONProminent heart size without new acute chest process.Electronically signed by: GABE BAUMANN (Sep 18, 2019 05:15:26)
[2019-09-18] MEDS: K-DUR TAB 20 MEQ PO PRN (06:09)
[2019-09-18] MEDS: AMARYL TAB 4 MG PO SCH (06:09)
[2019-09-18] MEDS: ROCEPHIN VIAL 1 GRAM 1 G in NS 100 ML IV + SPIKE MINIBAG* 100 ML IV SCH (08:39)
[2019-09-18] MEDS: ELIQUIS PO SCH (08:39)
[2019-09-18] MEDS: TENORMIN PO SCH (08:39)
[2019-09-18] MEDS: NORCO 5/325 MG TAB PO PRN (08:54)
[2019-09-18] MEDS ORDERED: PROTONIX INJ 40 MG VIAL IVP ONE (09:22)
[2019-09-18] MEDS ORDERED: LEVSIN/MAALOX/LIDOC VISC PO PRN (09:23)
[2019-09-18 11:13] LABS: ANTI-NUCLEAR ANTIBODY TEST None Detected (None Detected)
[2019-09-18] MEDS: VISTARIL PO PRN (14:32)
[2019-09-18 15:07] VITALS: BP 139/107
[2019-09-19 06:55] LABS: PROTEIN C ACTIVITY 82 % (83-168)
[2019-09-19] MEDS ORDERED: PROTONIX TAB 40 MG PO SCH (09:00)
[2019-09-19 09:46] LABS: PTT-D HEPARIN NEUT 40
[2019-09-19 09:49] LABS: REPTILASE TIME 15.2; THROMBIN TIME 26.7
[2019-09-20 09:19] LABS: PROTHROMBIN G20210A Negative
[2019-09-24] MEDS ORDERED: ELIQUIS PO SCH (21:00)
== END 2019-09-18 15:45 | disposition short-term general hospital (02) | DRG 176 ==
LOC: ER 09:01 → ICU 13:25
PROVIDERS: ADMIT Internal Medicine; ATTEND Internal Medicine
DX: R26.89 Other abnormalities of gait and mobility; E11.65 Type 2 diabetes mellitus with hyperglycemia; R06.02 Shortness of breath; I10 Essential (primary) hypertension; J20.8 Acute bronchitis due to other specified organisms; R00.0 Tachycardia, unspecified; E87.6 Hypokalemia; I82.411 Acute embolism and thrombosis of right femoral vein; E87.1 Hypo-osmolality and hyponatremia; R94.31 Abnormal electrocardiogram [ECG] [EKG]; R60.0 Localized edema; I26.99 Other pulmonary embolism without acute cor pulmonale
CPT/HCPCS: 36415; 36600; 71010; 71045; 71275; 80053; 80307; 81001; 81240; 82009; 82270; 82550; 82553; 82615; 82803; 83036; 83090; 83735; 83880; 84132; 84443; 84484; 85025; 85300; 85303; 85305; 85306; 85307; 85378; 85597; 85610; 85613; 85635; 85652; 85670; 85730; 85732; 86038; 86140; 86308; 93005; 93306; 93970; 96365; 96367; 96374; 96375; 97162; 97166; 97535; 99285; A4222; C9113; J0696; J1644; J1815; J3475; J7030; J7050; Q0177